=== PATIENT | male | born 1995 | race Two or more races ===

== ENCOUNTER 2019-04-06 17:21 | Emergency (ER) | payer OTHER ==
[~2019-04-06] VITALS: Ht 167.6 cm; Wt 68.2 kg
[2019-04-06 17:22] VITALS: BP 150/80
[2019-04-06] MEDS ORDERED: ACET-908 PO (17:29)
[2019-04-06 18:50] LABS: INFLUENZA A AMPLIFICATION NEGATIVE (NEGATIVE); INFLUENZA B AMPLIFICATION NEGATIVE (NEGATIVE)
== END 2019-04-06 19:18 | disposition left against medical advice (07) ==
LOC: M ED 17:21
DX: Z53.21 Procedure and treatment not carried out due to patient leaving prior to being seen by health care provider (principal)